=== PATIENT | female | born 2005 | race Caucasian/White ===

== ENCOUNTER 2024-06-12 20:52 | Emergency (ER) | payer BC ==
[2024-06-12] MEDS: Ondansetron 4 MG Tab.DIS PO ONE (22:40)
== END 2024-06-12 23:03 | disposition home or self-care (01) ==
LOC: MW.ED 20:52
DX: R11.2 Nausea with vomiting, unspecified (principal); F17.210 Nicotine dependence, cigarettes, uncomplicated
CPT/HCPCS: 36415; 84702; 99283; A9270; 99282